=== PATIENT | male | born 1980 | race Two or more races ===

== ENCOUNTER 2020-05-04 12:18 | Emergency (ER) | payer OTHER ==
[~2020-05-04] VITALS: Ht 167.6 cm; Wt 73.0 kg
[2020-05-04] MEDS ORDERED: TETANUS, DIPHTHERIA, PERTUSSIS VAC/PF 0.5ML (>7YR OLD) IM ONE (13:15)
[2020-05-04] MEDS ORDERED: OXYCODONE HCL/ACETAMINOPHEN 5/325MG TABLET PO ONE (13:15)
[2020-05-04] MEDS ORDERED: CEFAZOLIN 1000MG PREMIX 50 ML IV ONE (13:45)
[2020-05-04 15:37] LABS: CHLORIDE 101 mEq/L (98-107)
[2020-05-04 17:00] VITALS: BP 114/68
== END 2020-05-04 17:05 | disposition home or self-care (01) ==
LOC: ER 12:18
DX: S62.637A Displaced fracture of distal phalanx of left little finger, initial encounter for closed fracture (principal); W22.03XA Walked into furniture, initial encounter; Y93.89 Activity, other specified; Y92.9 Unspecified place or not applicable
CPT/HCPCS: 36415; 73130; 80053; 90471; 90715; 96365; 99284; J0690